=== PATIENT | female | born 1990 | race Caucasian/White ===

== ENCOUNTER 2021-12-26 09:53 | Emergency (ER) | payer SELFPAY ==
[2021-12-26 09:55] VITALS: BP 120/60; PULSE 98; RESP 16; TEMP 36.2; O2SAT 99
--- NOTE | 2021-12-26 10:16 | ED.GENADULT ---
HPI - General Adult General Chief complaint: Unspecified Stated complaint: Left side of face swollen Time Seen by Provider: 12/26/21 10:15 Source: patient Mode of arrival: ambulatory Limitations: no limitations History of Present Illness HPI narrative: patient complains of left-sided swelling of her face since last night without any pain. She has multiple dental caries. She has a history of dental abscesses in the past. Denies any fever nausea vomiting diarrhea. She has little tenderness on the left side of her face next to her nose. No nasal discharge no ear pain no headache no other pains. Location: face Radiation: non-radiation Pain Consistency: constant Relieving factors: none Exacerbating factors: none Associated symptoms: denies other symptoms Treatments prior to arrival: NSAID ( No help with ibuprofen) Related Data Allergies Allergy/AdvReac Type Severity Reaction Status Date / Time amoxicillin [From Augmentin] Allergy Hives Verified 12/26/21 10:23 clavulanic acid Allergy Hives Verified 12/26/21 10:23 [From Augmentin] Review of Systems Review of Systems: All systems reviewed & are unremarkable except as noted in HPI and below ENT: Reports as per HPI PMFSH Past Medical History Medical History (Updated 12/26/21 @ 10:42 by Suraj Guadarrama MD) Dental abscess Surgical History Surgical History (Updated 12/26/21 @ 10:41 by Suraj Guadarrama MD) History of abdominal surgery Exam Const: General: healthy appearing Nutritional Appearance: well nourished Orientation/consciousness: patient oriented x3 Limitations: no limitations HENMT: Head: normal to inspection Ears: external ears normal General nose exam: Normal external nose present Face and sinus: sinus tenderness ( mild left maxillary tenderness with moderate swelling to just below the le) Mouth: Yes lip normal and Yes moist mucous membranes Teeth and gingiva: abnormal dentition ( Multiple dental caries no swelling in the gums.) Throat: posterior oropharynx normal and uvula midline Eyes: Conjunctivae: conjunctivae normal Pupils: Equal, round and reactive pupils present EOM: EOMs intact bilaterally Neck: Neck: normal visual inspection and no lymphadenopathy Resp: Effort & Inspection: normal respiratory effort Auscultation: clear to auscultation bilaterally Cardio: Rate: regular rate Rhythm: regular rhythm Heart sounds: no murmurs Skin: General skin exam: normal color Neuro: General: patient oriented x3 Speech: normal speech Gait exam (Neuro): Normal gait present Course Vital Signs Vital signs: Vital Signs Temperature 36.2 C L 12/26/21 09:55 Pulse Rate 98 12/26/21 09:55 Respiratory Rate 16 12/26/21 09:55 Blood Pressure 120/60 12/26/21 09:55 Pulse Oximetry 99 12/26/21 09:55 Oxygen Delivery Room Air 12/26/21 09:55 Temperature 36.2 C L 12/26/21 09:55 Pulse Rate 98 12/26/21 09:55 Respiratory Rate 16 12/26/21 09:55 Blood Pressure 120/60 12/26/21 09:55 Pulse Oximetry 99 12/26/21 09:55 Oxygen Delivery Room Air 12/26/21 09:55 Medical Decision Making Differential Diagnosis Differential Diagnosis: This possibly could be sinusitis but more likely a dental abscess. Vital Signs Vital Signs: Vital Signs Temperature 36.2 C L 12/26/21 09:55 Pulse Rate 98 12/26/21 09:55 Respiratory Rate 16 12/26/21 09:55 Blood Pressure 120/60 12/26/21 09:55 Pulse Oximetry 99 12/26/21 09:55 Oxygen Delivery Room Air 12/26/21 09:55 Temperature 36.2 C L 12/26/21 09:55 Pulse Rate 98 12/26/21 09:55 Respiratory Rate 16 12/26/21 09:55 Blood Pressure 120/60 12/26/21 09:55 Pulse Oximetry 99 12/26/21 09:55 Oxygen Delivery Room Air 12/26/21 09:55 Critical Care Time Critical Care Time Critical Care Time: No Discharge Plan Discharge Clinical Impression: Abscess, dental Patient Disposition: Home, Self-Care Condition: Stable Instru
--- NOTE | 2021-12-26 10:36 | PC.NURSE ---
PT HAD MULTIPLE DENTAL CARIES NOTED, WITH SWELLING TO LEFT UPPER GUM LINE NOTED. PT HAS HX OF DENTAL ABSCESSES, HOWEVER DENIES ANY PAIN AT THIS TIME.
[2021-12-26 10:55] VITALS: BP 118/60; PULSE 72; RESP 16; TEMP 36.2; O2SAT 98
== END 2021-12-26 10:55 | disposition home or self-care (01) ==
PROVIDERS: Emergency Provider Emergency Medicine
DX: K04.7 Periapical abscess without sinus (principal)
CPT/HCPCS: 99283

== ENCOUNTER 2022-06-09 12:59 | Emergency (ER) | payer BC, SELFPAY ==
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
[2022-06-09 13:00] VITALS: BP 107/66
[2022-06-09 13:03] VITALS: BP 122/93; PULSE 70; RESP 16; TEMP 36.8; O2SAT 99
[2022-06-09] MEDS: KETOROLAC (*BKC) 60 MG/2 ML VIAL IM (13:17)
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
[2022-06-09 14:08] VITALS: BP 101/61; PULSE 60; RESP 16; O2SAT 100
== END 2022-06-09 14:22 | disposition home or self-care (01) ==
PROVIDERS: Emergency Provider Emergency Medicine
DX: S43.401A Unspecified sprain of right shoulder joint, initial encounter (principal); V89.2XXA Person injured in unspecified motor-vehicle accident, traffic, initial encounter
CPT/HCPCS: 73030; 96372; 99283; J1885

== ENCOUNTER 2022-07-03 09:23 | Emergency (ER) | payer BC, SELFPAY ==
[2022-07-03 09:32] VITALS: BP 115/62; PULSE 56; RESP 16; TEMP 36.6; O2SAT 100
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
== END 2022-07-03 10:28 | disposition home or self-care (01) ==
PROVIDERS: Emergency Provider Nurse Practitioner; PCP Emergency Medicine
DX: B34.9 Viral infection, unspecified (principal)
CPT/HCPCS: 87081; 87880; 99213; G0463

== ENCOUNTER 2023-01-25 09:46 | Emergency (ER) | payer BC, SELFPAY ==
[2023-01-25 09:50] VITALS: BP 110/66; PULSE 62; RESP 14; TEMP 36.6; O2SAT 100
--- NOTE | 2023-01-25 09:55 | ED.DENTAL ---
HPI - Dental/Oral General Chief complaint: Dental/Oral Stated complaint: tooth pain Source: patient and RN notes reviewed History of Present Illness HPI Narrative: 32 yo F presents to urgent care with complaints of left lower dental pain. Pt states she broke a tooth in this area on Saturday or Saturday after eating carrots and chips. Pt states shes had pain ever since. Pt reports having left facial swelling yesterday but nothing today. Pt is taking Excedrin with good relief. Related Data Allergies Allergy/AdvReac Type Severity Reaction Status Date / Time amoxicillin [From Augmentin] Allergy Hives Verified 01/25/23 09:58 clavulanic acid Allergy Hives Verified 01/25/23 09:58 [From Augmentin] Review of Systems Review of Systems: CONSTITUTIONAL: Denies fever, chills, or sweats. EYES: Denies visual changes, redness, or discharge. ENT: Denies otalgia and sore throat. Left dental pain CARDIOVASCULAR: Denies chest pain, palpitations, or edema. RESPIRATORY: Denies cough or dyspnea. GASTROINTESTINAL: Denies abdominal pain, nausea, vomiting, or diarrhea. GENITOURINARY: Denies dysuria or hematuria. SKIN: Denies rash or itching. MUSCULOSKELETAL: Denies back pain, joint pain, or myalgia. NEUROLOGIC: Denies headache, numbness, or weakness. Pertinent positives per HPI. 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 There is no relevant family history pertinent to the patient complaint. Exam Narrative: GENERAL: This is a well-nourished, well-developed patient, in no apparent distress. HEAD: normocephalic, atraumatic. EYES: Sclera clear/white. Vision is grossly intact. EARS: External ears normal, auditory canals clear and without drainage. Hearing grossly intact. NOSE: External nose normal with no obvious nasal discharge, nares without redness, no rhinorrhea. THROAT: Mucous membranes moist, posterior pharynx clear. MOUTH: broken tooth # 18. no significant swelling. no exudate noted. NECK: Neck supple, non-tender without lymphadenopathy, masses or thyromegaly. CARDIOVASCULAR: Regular rate RESPIRATORY: No respiratory distress SKIN: warm, intact with no suspicious lesions or rash, good texture and turgor. NEURO: awake, alert, and oriented to person, place and time. There were no obvious focal neurologic abnormalities. Course Course Level of Care: Express Care Visit Vital Signs Vital signs: Vital Signs Temperature 97.8 F 01/25/23 09:50 Pulse Rate 62 01/25/23 09:50 Respiratory Rate 14 01/25/23 09:50 Blood Pressure 110/66 01/25/23 09:50 Pulse Oximetry 100 01/25/23 09:50 Oxygen Delivery Room Air 01/25/23 09:50 Temperature 97.8 F 01/25/23 09:50 Pulse Rate 62 01/25/23 09:50 Respiratory Rate 14 01/25/23 09:50 Blood Pressure 110/66 01/25/23 09:50 Pulse Oximetry 100 01/25/23 09:50 Oxygen Delivery Room Air 01/25/23 09:50 Reviewed MDM - Dental/Oral MDM Narrative Medical decision making narrative: May call Estrella @ the [facility] [address] [address] hrs: Mon-Fri 8:30-5:00 Sat 8-noon [place]
== END 2023-01-25 10:04 | disposition home or self-care (01) ==
PROVIDERS: Emergency Provider Nurse Practitioner Family
DX: K08.89 Other specified disorders of teeth and supporting structures (principal)
CPT/HCPCS: 99213; G0463

== ENCOUNTER 2023-04-25 08:31 | Emergency (ER) | payer BC, SELFPAY ==
[2023-04-25 08:38] VITALS: BP 109/71; PULSE 68; RESP 20; TEMP 36.8; O2SAT 100
--- NOTE | 2023-04-25 08:51 | ED.URI ---
HPI - URI/Sore Throat General Chief Complaint: Upper Respiratory Infection Stated Complaint: Sore Throat,Vomiting,Drainage Time Seen by Provider: 04/25/23 08:51 Source: patient and RN notes reviewed Mode of arrival: ambulatory Limitations: no limitations History of Present Illness HPI Narrative: 33 year old female presents with concern for 2 week history of sore throat, post nasal drainage, cough. She had been taking mucinex without relief. She reported fever in the beginning of her illness. MD elicited complaint: sore throat Related Data Allergies Allergy/AdvReac Type Severity Reaction Status Date / Time clavulanic acid Allergy Hives Verified 04/25/23 08:46 [From Augmentin] Review of Systems Review of Systems: CONSTITUTIONAL: Denies malaise, chills, sweats, or fever. EYES: Denies visual changes, redness, or discharge. ENT: Reports rhinorrhea, post nasal drainge, congestion, and sore throat. CARDIOVASCULAR: Denies chest pain, palpitations, or edema. RESPIRATORY: Reports cough. Denies dyspnea. GASTROINTESTINAL: Denies abdominal pain, nausea, vomiting, diarrhea SKIN: Denies rash or itching. MUSCULOSKELETAL: Denies myalgia. NEUROLOGIC: Denies headache. All systems reviewed & are unremarkable except as noted in HPI and below PMFSH Past Medical History Medical History Dental abscess HSV-2 infection rx meds prn Surgical History Surgical History Delivery by section (03/24/12) primary c/s decreased heart rate in infant Delivery by section (07/19/14) rpt c/s Delivery by section (05/15/17) rpt c/s with Tubal ligation History of abdominal surgery Family History Family History (Updated 04/16/23 @ 09:00 by CLAUDIA Luna) Mother Family history non-contributory Father Lung cancer, Onset Age: 57 Social History Social History (Updated 04/16/23 @ 09:01 by CLAUDIA Luna) Smoking status: Never smoker Second hand tobacco smoke exposure: No Alcohol intake: current Drinks per week: 1 Alcohol use details: social Substance use: never Substance use type: does not use and former substance user Do You Feel Safe in your Home?: Yes Lack of Transportation: No Lack of Food: Never True Current Housing: I Have Housing Difficulty Paying Gas/Electric Bills: No Difficulty Paying for Meds: No Currently Unemployed: No Education: High School Diploma/GED Difficulty w/ Childcare or Family Care: No Living arrangements: other Additional living arrangements comments: single Occupation/Education: occupation 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 There is no relevant family history pertinent to the presenting complaint Exam Narrative: GENERAL: Well-appearing, well-nourished, and in no acute distress. HEAD: Normocephalic EYES: PERRLA, conjunctivae clear ENT: Nares clear, turbinates edematous and erythematous. Mucous membranes moist. TM pearly dye with dull light reflex bilaterally; no tragal tenderness. Oropharynx not erythematous without lesions. Tonsils not enlarged and without exudate, no drooling, no hoarseness, no trismus, uvula midline. NECK: Supple. No lymphadenopathy CHEST: Clear to auscultation, breath sounds equal. No wheezing, rhonchi, rales, or stridor. No respiratory distress, speaks in full sentences. HEART: Regular rate and rhythm. No murmur heard. SKIN: Warm, dry, no rash. NEURO: Alert and oriented x3. PSYCH: Normal mood and affect Course Course Emergency Course: Patient is aware of diagnosis, understands and agree
== END 2023-04-25 09:07 | disposition home or self-care (01) ==
PROVIDERS: Emergency Provider Nurse Practitioner
DX: J02.9 Acute pharyngitis, unspecified (principal); J32.9 Chronic sinusitis, unspecified
CPT/HCPCS: 87081; 87880; 99213; G0463

== ENCOUNTER 2023-12-31 10:29 | Emergency (ER) | payer OTHER, BC, SELFPAY ==
[2023-12-31 11:08] VITALS: BP 97/67; PULSE 84; RESP 18; TEMP 36.3; O2SAT 99
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
== END 2023-12-31 12:26 | disposition home or self-care (01) ==
PROVIDERS: Emergency Provider Nurse Practitioner
DX: S16.1XXA Strain of muscle, fascia and tendon at neck level, initial encounter (principal); V89.2XXA Person injured in unspecified motor-vehicle accident, traffic, initial encounter
CPT/HCPCS: 99212; G0463